=== PATIENT | female | born 1935 | race Two or more races ===

== ENCOUNTER 2020-01-11 11:52 | Inpatient (IN) | payer OTHER ==
[~2020-01-11 11:52] MED LIST: TENORMIN100 M1 PO; XANAX1 MG PO
== END 2020-01-15 18:07 | disposition home or self-care (01) | DRG 516 ==
LOC: CIR.AMB 11:52 → SURG 19:16
PROVIDERS: Orthopaedic Surgery Sports Medicine; ADMIT Internal Medicine; ATTEND Internal Medicine
PROC: 0QSD04Z Reposition Right Patella with Internal Fixation Device, Open Approach (ICD-10-PCS; principal; 2020-01-14 16:00)
DX: S82.041A Displaced comminuted fracture of right patella, initial encounter for closed fracture (principal); I16.9 Hypertensive crisis, unspecified